=== PATIENT | female | born 1950 | race Caucasian/White ===

== ENCOUNTER → 2020-04-24 | Outpatient (CLI) | payer MEDICARE, MEDICAID ==
[~2020-04-24] MED LIST: REGADENOSON 0.4 MG/5 ML SYRINGE ONE
== END | disposition home or self-care (01) ==
LOC: CFH 08:11
PROVIDERS: ATTEND Internal Medicine Cardiovascular Disease
DX: I08.0 Rheumatic disorders of both mitral and aortic valves (principal); I10 Essential (primary) hypertension; E78.5 Hyperlipidemia, unspecified; Z86.73 Personal history of transient ischemic attack (TIA), and cerebral infarction without residual deficits
CPT/HCPCS: 78452; 93017; 93306; A9502; J2785

== ENCOUNTER 2020-07-10 10:00 | Inpatient (IN) | payer MEDICARE, MEDICAID ==
[~2020-07-10] VITALS: Ht 172.7 cm; Wt 91.0 kg
[2020-07-15] MEDS ORDERED: ASPI81TA45 PO (12:27)
[2020-07-15] MEDS ORDERED: ATEN50TA41 PO (12:27)
[2020-07-15] MEDS ORDERED: LOSA100T14 PO (12:27)
[2020-07-15] MEDS ORDERED: HYDR25TA6 PO (12:27)
[2020-07-15] MEDS ORDERED: FLUO40CA2 PO (12:27)
[2020-07-15] MEDS ORDERED: ROSU40TA PO (12:27)
[2020-07-15] MEDS ORDERED: ALEN70TA77 PO (12:27)
[2020-07-15 13:00] LABS: BASOPHILS % (AUTO) 1 % (0-1); EOSINOPHILS % (AUTO) 1 % (1-7); LYMPHOCYTES % (AUTO) 22 % (22-44); MEAN CORPUSCULAR HEMOGLOBIN 33.6 pg (27.0-34.8); MEAN CORPUSCULAR HGB CONC 33.8 g/dL (32.4-35.8); MEAN PLATELET VOLUME 10.2 fL (7.4-10.4); MONOCYTES % (AUTO) 11 % (2-9); NEUTROPHILS % (AUTO) 65 % (42-75); PLATELET COUNT 212 x10^3/uL (130-400); RED CELL DISTRIBUTION WIDTH 12.8 % (9.6-15.2)
[2020-07-15 13:02] LABS: ALANINE AMINOTRANSFERASE 36 U/L (12-78); ALBUMIN 3.9 g/dL (3.4-5.0); ANION GAP 5 mmol/L (5-15); CHLORIDE 105 mmol/L (98-107); CREATININE 0.99 mg/dL (0.55-1.02); MD NO
[2020-07-15 13:05] LABS: ALKALINE PHOSPHATASE 66 U/L (45-117); BILIRUBIN,TOTAL 0.5 mg/dL (0.2-1.0); TOTAL PROTEIN 7.5 g/dL (6.4-8.2)
[2020-07-18] MEDS ORDERED: CHLORHEXIDINE 15 ML UDC ONE (06:21)
[2020-07-18] MEDS ORDERED: CHLORHEXIDINE 15 ML UDC PO ONE (06:30)
[2020-07-18] MEDS ORDERED: LACTATED RINGERS 1,000 ML IV SCH (06:30)
[2020-07-18] MEDS ORDERED: FENTANYL PF 100 MCG/2ML ONE (07:05)
[2020-07-18] MEDS ORDERED: SODIUM CHLORIDE 0.9% PF 10ML ONE (07:06)
[2020-07-18] MEDS ORDERED: LIDOCAINE-MPF 2% ,5ML ONE (07:06)
[2020-07-18] MEDS ORDERED: HEPARIN 5,000 UNITS/ML, 1ML ONE (07:12)
[2020-07-18] MEDS ORDERED: THROMBIN 5,000 UNIT VIAL TP ONE (07:13)
[2020-07-18] MEDS ORDERED: LIDOCAINE 1%, 20ML ONE (07:13)
[2020-07-18] MEDS ORDERED: HEPARIN 1,000 UNITS/ML, 10ML ONE (07:13)
[2020-07-18] MEDS ORDERED: hydrALAzine 20 MG/ML, 1ML IV PRN (07:30)
[2020-07-18] MEDS ORDERED: ONDANSETRON 2MG/ML, 2ML IVPush PRN (07:30)
[2020-07-18] MEDS ORDERED: PROMETHAZINE 25 MG/ML, 1ML IVPush PRN (07:30)
[2020-07-18] MEDS ORDERED: FENTANYL PF 100 MCG/2ML IV PRN (07:30)
[2020-07-18] MEDS ORDERED: OXYcodone 5 MG/5 ML ORAL.SOL UDC PO PRN (07:30)
[2020-07-18] MEDS ORDERED: HYDROmorphone 1 MG/ML, 1ML INJ IVPush PRN (07:30)
[2020-07-18] MEDS ORDERED: ACETAMINOPHEN 325 MG TABLET PO PRN (07:30)
[2020-07-18] MEDS ORDERED: LABETALOL 5MG/ML, 20ML IV PRN (07:30)
[2020-07-18] MEDS ORDERED: KETOROLAC 30 MG/1 ML ONE (07:51)
[2020-07-18] MEDS ORDERED: PROPOFOL 10 MG/ML, 20ML ONE (07:54)
[2020-07-18] MEDS ORDERED: SUCCINYLCHOLINE 20 MG/ML, 10ML ONE (07:54)
[2020-07-18] MEDS ORDERED: CEFAZOLIN 1,000 MG ONE (07:54)
[2020-07-18] MEDS ORDERED: ONDANSETRON 2MG/ML, 2ML ONE (07:54)
[2020-07-18] MEDS ORDERED: DEXAMETHASONE 4 MG/ML, 1ML ONE (07:54)
[2020-07-18] MEDS ORDERED: PHENYLEPHRINE 10 MG/ML ONE (08:04)
[2020-07-18] MEDS ORDERED: NEOSTIGMINE 1 MG/ML, 10ML ONE (08:07)
[2020-07-18] MEDS ORDERED: GLYCOPYRROLATE 0.2MG/1ML, 5ML ONE (08:07)
[2020-07-18] MEDS ORDERED: PROTAMINE SULFATE 10 MG/ML, 5ML ONE (08:25)
[2020-07-18] MEDS ORDERED: HYDROmorphone 1 MG/ML, 1ML INJ ONE (09:26)
[2020-07-18] MEDS ORDERED: EPHEDRINE 50 MG/ML, 1ML ONE (10:05)
[2020-07-18] MEDS: EPHEDRINE 50 MG/ML, 1ML IVPush PRN ×3 (10:16→10:42)
[2020-07-18] MEDS ORDERED: LACTATED RINGERS 500 ML IVBOLUS ONE (10:30)
[2020-07-18] MEDS ORDERED: MIDODRINE 2.5 MG TABLET PO STA (10:37)
[2020-07-18] MEDS ORDERED: ACETAMINOPHEN 650 MG/20.3 ML UDC ONE (11:31)
[2020-07-18 13:30] VITALS: BP 96/59
[2020-07-18] MEDS ORDERED: ONDANSETRON 2MG/ML, 2ML IV PRN (14:00)
[2020-07-18] MEDS ORDERED: SODIUM CHLORIDE 0.9% 1,000ML IVBOLUS ONE (14:30)
[2020-07-18] MEDS: LACTATED RINGERS 1,000 ML IV SCH (17:00)
[2020-07-18] MEDS ORDERED: NOREPINEPHRINE 8 MG in SODIUM CHLORIDE 0.9% 242 ML IV PRN (20:00)
[2020-07-18] MEDS: ATORVASTATIN 80 MG TABLET PO SCH (20:27)
[2020-07-18] MEDS: HYDROcodone/APAP 5/325 TABLET PO PRN (20:31)
[2020-07-19] MEDS: HYDROcodone/APAP 5/325 TABLET PO PRN ×2 (00:08→20:13)
[2020-07-19] MEDS: LACTATED RINGERS 1,000 ML IV SCH ×3 (02:11→21:56)
[2020-07-19 04:37] VITALS: BP 116/52
[2020-07-19] MEDS: ATENOLOL 50 MG TABLET PO SCH (05:26)
[2020-07-19] MEDS: HEPARIN 5,000 UNITS/ML, 1ML SQ SCH ×3 (05:29→20:14)
[2020-07-19] MEDS: ASPIRIN 81 MG TABLET EC PO SCH (05:29)
[2020-07-19] MEDS ORDERED: ACETAMINOPHEN 325 MG TABLET ONE ×2 (07:39→13:48)
[2020-07-19] MEDS: LOSARTAN 100 MG TAB PO SCH (09:00)
[2020-07-19] MEDS: HYDROCHLOROTHIAZIDE 25 MG TABLET PO SCH (09:00)
[2020-07-19] MEDS: FLUOXETINE HCL 20 MG CAPSULE PO SCH (09:12)
[2020-07-19] MEDS: ATORVASTATIN 80 MG TABLET PO SCH (20:14)
[2020-07-20] MEDS: ACETAMINOPHEN 325 MG TABLET PO PRN ×2 (04:04→08:48)
[2020-07-20] MEDS: ATENOLOL 50 MG TABLET PO SCH (05:27)
[2020-07-20] MEDS ORDERED: ALENDRONATE 70 MG TABLET PO SCH (06:30)
[2020-07-20] MEDS: HEPARIN 5,000 UNITS/ML, 1ML SQ SCH (06:35)
[2020-07-20] MEDS: ASPIRIN 81 MG TABLET EC PO SCH (06:35)
[2020-07-20] MEDS: FLUOXETINE HCL 20 MG CAPSULE PO SCH (08:48)
[2020-07-20] MEDS: HYDROCHLOROTHIAZIDE 25 MG TABLET PO SCH (09:00)
[2020-07-20] MEDS: LOSARTAN 100 MG TAB PO SCH (09:00)
[2020-07-20] MEDS ORDERED: HYDR-2214 PO (10:46)
== END 2020-07-20 13:51 | disposition home or self-care (01) | DRG 39 ==
LOC: ORIP 07-18 05:43 → 4NE 07-18 13:25 → CCU 07-18 18:18 → DCLOUNGE 07-20 13:36
PROVIDERS: ADMIT Surgery; ATTEND Surgery
PROC: 03UM0KZ Supplement Right External Carotid Artery with Nonautologous Tissue Substitute, Open Approach (ICD-10-PCS; 2020-07-18)
PROC: 03CM0ZZ Extirpation of Matter from Right External Carotid Artery, Open Approach (ICD-10-PCS; principal; 2020-07-18 07:30)
DX: I65.21 Occlusion and stenosis of right carotid artery (principal); I10 Essential (primary) hypertension; I95.9 Hypotension, unspecified; Z20.822 Contact with and (suspected) exposure to COVID-19
CPT/HCPCS: 36415; 71046; 80053; 85025; 85347; 86850; 86900; 87081; 88304; 88311; 93005; C1729; G0378; J0690; J1100; J1170; J1644; J1885; J2405; J2704; J2710; J2720; J3010; J7120; C1768; J0330; J2370; J7030; J7050; U0003

== ENCOUNTER → 2020-07-15 | Outpatient (CLI) | payer MEDICARE, MEDICAID ==
[~2020-07-15] MED LIST changes: +ALEN70TA77 PO; +ASPI81TA45 PO; +ATEN50TA41 PO; +FLUO40CA2 PO; +HYDR25TA6 PO; +LOSA100T14 PO; -REGADENOSON 0.4 MG/5 ML SYRINGE ONE; +ROSU40TA PO
[2020-07-15 13:18] LABS: CHOL/HDL RATIO 1.9; LDL/HDL RATIO 0.7 (0.5-3.0)
== END | disposition home or self-care (01) ==
LOC: LAB 11:49
PROVIDERS: ATTEND Internal Medicine Cardiovascular Disease
DX: E78.5 Hyperlipidemia, unspecified (principal)
CPT/HCPCS: 36415; 80061

== ENCOUNTER 2020-11-19 09:35 | Emergency (ER) | payer MEDICAID, MEDICARE ==
[~2020-11-19] VITALS: Ht 172.7 cm; Wt 90.0 kg
[~2020-11-19 09:35] MED LIST changes: +HYDR-2214 PO
--- NOTE | 2020-11-19 10:45 | NUR ---
PT TO ROOM FROM LOBBY VIA WC. FAMILY AT BS.
--- NOTE | 2020-11-19 11:03 | NUR ---
RESP ISO CART AND SIGNAGE IN PLACE. ERP IN TO SEE PT.
[2020-11-19 11:29] LABS: BASOPHILS % (AUTO) 0 % (0-1); EOSINOPHILS % (AUTO) 0 % (1-7); LYMPHOCYTES % (AUTO) 9 % (22-44); MEAN CORPUSCULAR HEMOGLOBIN 33.4 pg (27.0-34.8); MEAN CORPUSCULAR HGB CONC 33.9 g/dL (32.4-35.8); MEAN PLATELET VOLUME 9.1 fL (7.4-10.4); MONOCYTES % (AUTO) 12 % (2-9); NEUTROPHILS % (AUTO) 78 % (42-75); PLATELET COUNT 189 x10^3/uL (130-400); RED BLOOD COUNT 4.33 x10^6/uL (3.82-5.3); RED CELL DISTRIBUTION WIDTH 13.4 % (9.6-15.2)
[2020-11-19] MEDS ORDERED: SODIUM CHLORIDE 0.9% 1,000ML IVBOLUS ONE (11:30)
[2020-11-19] MEDS ORDERED: SODIUM CHLORIDE FLUSH 10ML SYR IVF ONE (11:30)
[2020-11-19 11:38] LABS: ALBUMIN 3.5 g/dL (3.4-5.0); ANION GAP 10 mmol/L (5-15); CALCIUM 9.4 mg/dL (8.5-10.1); CHLORIDE 99 mmol/L (98-107); CREATININE 0.94 mg/dL (0.55-1.02)
--- NOTE | 2020-11-19 12:16 | NUR ---
ED MEDIC IN TO START IV AND NS BOLUS. ERP NOTIFIED OF RA SAT MOSTLY 92-93% WITH OCCASIONAL DECREASE TO 88-89% FOR A FEW SECONDS ONLY. ERP IN TO RECHECK.
--- NOTE | 2020-11-19 12:27 | NUR ---
IV PLACED, NS BOLUS INFUSING. ERP IN TO REEVAL AND DISCUSS POC.
[2020-11-19] MEDS ORDERED: CASIRIVIMAB 600 MG, IMDEVIMAB (REGN10987) 600 MG in SODIUM CHLORIDE 0.9% 250 ML IVPB ONE (13:00)
[2020-11-19] MEDS ORDERED: FILTER 0.22 MICRON IV ONE (13:00)
--- NOTE | 2020-11-19 13:15 | NUR ---
REGENERON INFUSION STARTED. PT INFORMATION SHEET PROVIDED. CALL LIGHT WITHIN REACH, FAMILY AT BS.
--- NOTE | 2020-11-19 14:26 | NUR ---
KELECHI COMPLETED, CONTINUE TO MONITOR FOR 1 HR.
--- NOTE | 2020-11-19 15:15 | NUR ---
REPORT FROM BORA SANCHEZ
--- NOTE | 2020-11-19 15:28 | NUR ---
REPORT TO DELISA SANCHEZ, TRANSFER OF CARE AT THIS TIME.
[2020-11-19 16:07] VITALS: BP 162/75
== END 2020-11-19 16:08 | disposition home or self-care (01) ==
LOC: ED 13:08
DX: U07.1 COVID-19 (principal); J06.9 Acute upper respiratory infection, unspecified; I10 Essential (primary) hypertension; Z85.3 Personal history of malignant neoplasm of breast
CPT/HCPCS: 36415; 71045; 80048; 82040; 85025; 99284; J7030; M0243; U0003; U0005; 96365